=== PATIENT | male | born 1955 | race Caucasian/White ===

== ENCOUNTER 2019-05-09 14:33 | Inpatient (IN) | payer MEDICARE, OTHER ==
[2019-05-10 21:44] VITALS: BP 131/75
--- NOTE | 2019-05-11 07:08 | Psychiatric Evaluation ---
DATE OF SERVICE: PSYCHIATRIC INITIAL EVALUATION AND MENTAL STATUS EXAM PATIENT'S AGE: 63. SEX: Male. PHYSICIAN: Dr. Santizo. CHIEF COMPLAINT: Irritability and agitation. HISTORY OF PRESENT ILLNESS: The patient is a 63-year-old male who was admitted to the hospital from a [facility] facility. In the facility, the patient has been easily agitated and has been in irritable mood and striking out at staff. The patient also has been refusing to cooperate with the staff and has been refusing to take medications. The patient has long history of what seems to be schizoaffective disorder, but he has not been compliant with taking his medications and is felt to be paranoid and irritable. The patient is constantly talking and has been in irritable and angry mood. The patient also has been restless and has been agitated. He also has been suspicious and has been paranoid. During interview, the patient was not able to stop talking and was constantly talking to himself and has difficulty following directions. PAST PSYCHIATRIC HISTORY: The patient said that he has a history of multiple psychiatric hospitalizations for treatment of schizoaffective disorder. PAST MEDICAL HISTORY: The patient has COPD. FAMILY PSYCHIATRIC AND CHEMICAL DEPENDENCE HISTORY: The patient is unable to tell, but he basically denies any. SOCIAL HISTORY: The patient is single, never and has no children. The patient admits to smoking 8 cigarettes per day. He denies any alcohol or any street drug use at this time. The patient denies any legal issues and denies any history of abuse. ALLERGIES: No known allergies. MENTAL STATUS EXAMINATION: The patient appears much older than stated age. Disheveled. Irritable mood. Thought processes are circumstantial and tangential with flight of ideas and the patient is actively hallucinating and actively talking to himself. The patient denies any intention to harm himself or others. The patient is alert and oriented to time, place, person, and situation. Intact immediate, recent and remote memories. Poor insight and he does not know why he is in the hospital. Poor judgment and he was refusing to take his medications and he was striking out at staff. He seems to be of average intelligence based on his verbal ability. ASSESSMENT: PRIMARY DIAGNOSIS: Schizoaffective disorder, bipolar type, severe, with psychotic features. MEDICAL DIAGNOSES: Chronic obstructive pulmonary disease. TREATMENT PLAN: We will monitor the patient's behavior and condition closely. Also, we will continue lithium and we will start the patient on Seroquel and we will adjust the dose. Also, we will work on his irritability and his agitation. ESTIMATED LENGTH OF STAY: 5-7 days. PATIENT'S STRENGTHS AND WEAKNESSES: The patient so far seems to be calm and cooperative with his treatment. Weaknesses is his poor impulse control and his noncompliance with taking his medications. AFTER DISCHARGE PLAN: Outpatient treatment and followup will continue as an outpatient. The patient also will return to [facility]. CRITERIA FOR DISCHARGE: The patient will not be agitated or psychotic and stabilize psychotropic medications and establish outpatient treatment plans. JOB# [id number]
--- NOTE | 2019-05-11 12:49 | History and Physical ---
History of Present Illness - HPI Chief Complaint: 63 y/o male patient was brought into ER for evaluation due to Irritability and Agitation. HPI: 63 y/o male patient was admitted to [facility] for evaluation due to Irritability and Agitation. Patient has been talking to himself and hallucinating. Patient has history of Copd and Schizoaffective disorder. Patient had a Psych consultation and a workup was done. Patient was diagnosed with Schizoaffective disorder, Bipolar type, severe with Psychotic features and History of Copd. I will follow, treat and monitor patient. Patient will continue current treatment plan as ordered. Vital Signs: Last Vital Signs Temp 98.2 F 05/11/19 06:15 Pulse 71 05/11/19 06:15 Resp 19 05/11/19 06:15 BP 127/74 05/11/19 06:15 Pulse Ox 98 05/11/19 06:15 Past Medical History Cardiovascular: Report: No Pertinent Hx Pulmonary: Report: COPD [employer]: Report: No Pertinent Hx GI: Report: No Pertinent Hx Psych: Report: Schizophrenia Musculoskeletal: Report: No Pertinent Hx Rheumatologic: Report: No pertinent Hx Infectious Disease: Report: No Pertinent Hx Renal/: Report: No Pertinent Hx Endocrine: Report: No Pertinent Hx Dermatology: Report: No Pertinent Hx - Past Surgical History Past Surgical History: No pertinent Hx Family Medical History - Family Member Mother History Unknown: Yes Social History Smoke: No Alcohol: None Drugs: None Lives: Snf Domestic Violence: Negative Health Maintenance Health Maintenance: Other (Please see chart.) - Medications Home Medications: Home Medication Medication Instructions Recorded Type Alprazolam 0.5 mg PO DAILY PRN 05/10/19 History Aspirin [Lo-Dose Aspirin EC] 81 mg PO DAILY 05/10/19 History Benztropine [Cogentin*] 0.5 mg PO DAILY 05/10/19 History Carbidopa/Levodopa 25 - 100 mg PO TID 05/10/19 History [Carbidopa-Levodopa 25-100 Tab] Cholecalciferol (Vitamin D3) 2,000 units PO DAILY 05/10/19 History [Vitamin D3] Trazodone HCl 100 mg PO HS 05/10/19 History Other Medications: Please see Medication reconciliation sheet. - Allergies Allergies/Adverse Reactions: Allergies Allergy/AdvReac Type Severity Reaction Status Date / Time No Known Allergies Allergy Verified 02/04/20 21:44 Review of Systems - Review of Systems Review of Systems: Patient is agitated and irritable, needs close monitoring. Constitutional: Report: No Significant Eyes: Report: No Significant ENT: Report: No Significant Respiratory: Report: Other (History of Copd.) Cardiovascular: Report: No Significant Gastrointestinal: Report: No Significant Genitourinary: Report: No Significant Musculoskeletal: Report: No Significant Skin: Report: No Significant Neurological: Report: Confusion Physical Exam - Physical Exam HEENT: Report: Ears Nose Throat within normal limits Neck: Report: Within normal limits Cardiovascular Systems: Report: +s1/s2 noted, Regular, Rate and Rhythm Respiratory: Report: Breath Sounds are within normal limits Abdomen: Report: Non-tender to palpation Back: Report: Inspection of back is within normal limits. Extremities: Report: Non-tender to palpation. Skin: Report: Color of skin is within normal limits Neuro/Psych: Report: Disoriented to name time or place - Lab Results All Lab Results last 24 hours: Please see labs. - Assessment Assessment: Schizoaffective disorder. Bipolar type, severe with Psychotic features. History of Copd. - Plan Plan: Psych management as per Psych. Monitor vitals and labs. Supportive care. Pain management. Monitor diet and nutritional support. Continue current treatment plan as ordered.
[2019-05-12] MEDS: Vitamin D3 2,000 IU SGL PO SCH (08:07)
--- NOTE | 2019-05-12 08:20 | Progress Notes ---
DATE: SUBJECTIVE: Chart was reviewed and the patient interviewed. Also discussed the patient's condition with the staff and reviewed records and labs. The patient is still in angry and in irritable mood. The patient also is still restless and still has pacing up and down the unit in a confused state. He is also still unable to follow any directions. The patient also is in angry and in irritable mood. Otherwise, the patient is compliant with taking medications with no side effects of medications. ASSESSMENT: The patient is still in irritable mood and agitated and needs lots of redirections. TREATMENT PLAN: We will continue lithium 300 mg twice a day. We will change Seroquel to be given 50 mg twice a day and 100 mg at bedtime, especially that the patient according to staff had difficulty sleeping at night. Also, we will increase trazodone to 150 mg every day and we will continue to monitor behavior and condition closely. Also, work on behavioral and poor impulse control. JOB# [id number]
--- NOTE | 2019-05-12 13:29 | Internal Medicine Prog Note ---
Internal Medicine Subjective - Subjective Service Date: 05/12/19 Patient seen and examined:: with staff Patient is:: awake Per staff patient has:: tolerating meds Internal Medicine Objective - Physical Exam Vitals and I&O: Vital Signs Temp 97.2 F 05/12/19 06:00 Pulse 75 05/12/19 06:00 Resp 19 05/12/19 11:08 BP 128/80 05/12/19 06:00 Pulse Ox 98 05/12/19 06:00 Intake & Output 05/11/19 05/12/19 05/12/19 18:59 06:59 18:59 Intake Total 120 Balance 120 Intake: Oral 120 Other: # Voids 2 # Bowel Movements 0 Active Medications: Current Medications Acetaminophen (Tylenol) 650 mg PO Q4H PRN PRN Reason: Pain (Mild 1-3) Stop: 07/09/19 22:47 Last Admin: 05/12/19 05:47 Dose: 650 mg Aspirin (Ecotrin) 81 mg PO DAILY [facility] Stop: 07/11/19 08:59 Last Admin: 05/12/19 08:06 Dose: 81 mg Benztropine Mesylate (Cogentin) 1 mg PO BID [facility] Stop: 07/11/19 08:59 Last Admin: 05/12/19 08:06 Dose: 1 mg Carbidopa/Levodopa (Sinemet 25mg-100 Mg) 1 tab PO TID [facility] Stop: 07/10/19 20:59 Last Admin: 05/12/19 13:27 Dose: 1 tab [place] Carbonate (Eskalith) 300 mg PO BID [facility]; Protocol Stop: 07/10/19 08:59 Last Admin: 05/12/19 08:07 Dose: 300 mg Lorazepam (Ativan) 0.5 mg PO Q4HR PRN; Protocol PRN Reason: Anxiety Stop: 06/09/19 19:44 Quetiapine Fumarate (Seroquel) 100 mg PO HS [facility]; Protocol Stop: 07/11/19 20:59 Quetiapine Fumarate (Seroquel) 50 mg PO BID [facility]; Protocol Stop: 07/11/19 08:59 Last Admin: 05/12/19 08:07 Dose: 50 mg Trazodone HCl (Desyrel) 150 mg PO HS [facility] Stop: 07/11/19 20:59 Vitamin D (Vitamin D3) 2,000 iu PO DAILY [facility] Stop: 07/11/19 08:59 Last Admin: 05/12/19 08:07 Dose: 2,000 iu Zolpidem Tartrate (Ambien) 5 mg PO HS PRN PRN Reason: Insomnia Stop: 07/09/19 19:44 Last Admin: 05/12/19 00:16 Dose: 5 mg General: alert HEENT: NC/AT Neck: Supple Lungs: CTAB Cardiovascular: RRR, without murmur Abdomen: soft, non-tender, non-distended, positive bowel sound Neurological: alert - Procedures Procedures: Procedures Procedure Code Date INDIVID PSYCHOTHERAP NEC 94.39 12/24/05 OTHER GROUP THERAPY 94.44 12/30/07 RECREATIONAL THERAPY 93.81 09/26/07 Internal Medicine Assmt/Plan - Assessment Assessment: Schizoaffective disorder. Bipolar type, severe with Psychotic features. History of Copd. - Plan Plan: Psych management as per Psych. Monitor vitals and labs. Supportive care. Pain management. Monitor diet and nutritional support. Continue current treatment plan as ordered.
[2019-05-13] MEDS: Vitamin D3 2,000 IU SGL PO SCH (08:15)
--- NOTE | 2019-05-13 11:53 | Internal Medicine Prog Note ---
Internal Medicine Subjective - Subjective Service Date: 05/13/19 Patient seen and examined:: with staff Patient is:: awake, agitated, confused Patient Complaints of:: other (Mood disorders.) Per staff patient has:: tolerating meds Internal Medicine Objective - Physical Exam Vitals and I&O: Vital Signs Temp 98.4 F 05/13/19 06:19 Pulse 83 05/13/19 06:19 Resp 17 05/13/19 06:19 BP 102/82 05/13/19 06:19 Pulse Ox 100 05/13/19 06:19 Intake & Output 05/12/19 05/13/19 05/13/19 18:59 06:59 18:59 Intake Total 1200 400 Output Total 2 Balance 1200 398 Intake: Oral 1200 400 Output: Urine 2 Other: # Voids 1 # Bowel Movements 1 0 Active Medications: Current Medications Acetaminophen (Tylenol) 650 mg PO Q4H PRN PRN Reason: Pain (Mild 1-3) Stop: 07/09/19 22:47 Last Admin: 05/12/19 13:29 Dose: 650 mg Aspirin (Ecotrin) 81 mg PO DAILY [facility] Stop: 07/11/19 08:59 Last Admin: 05/13/19 08:15 Dose: 81 mg Benztropine Mesylate (Cogentin) 1 mg PO BID [facility] Stop: 07/11/19 08:59 Last Admin: 05/13/19 08:15 Dose: 1 mg Carbidopa/Levodopa (Sinemet 25mg-100 Mg) 1 tab PO TID [facility] Stop: 07/10/19 20:59 Last Admin: 05/13/19 08:15 Dose: 1 tab [place] Carbonate (Eskalith) 300 mg PO BID [facility]; Protocol Stop: 07/10/19 08:59 Last Admin: 05/13/19 08:15 Dose: 300 mg Lorazepam (Ativan) 0.5 mg PO Q4HR PRN; Protocol PRN Reason: Anxiety Stop: 06/09/19 19:44 Last Admin: 05/13/19 03:36 Dose: 0.5 mg Quetiapine Fumarate (Seroquel) 100 mg PO HS [facility]; Protocol Stop: 07/11/19 20:59 Last Admin: 05/12/19 21:04 Dose: 100 mg Quetiapine Fumarate (Seroquel) 50 mg PO BID [facility]; Protocol Stop: 07/11/19 08:59 Last Admin: 05/13/19 08:15 Dose: 50 mg Trazodone HCl (Desyrel) 150 mg PO HS [facility] Stop: 07/11/19 20:59 Last Admin: 05/12/19 21:03 Dose: 150 mg Vitamin D (Vitamin D3) 2,000 iu PO DAILY [facility] Stop: 07/11/19 08:59 Last Admin: 05/13/19 08:15 Dose: 2,000 iu Zolpidem Tartrate (Ambien) 5 mg PO HS PRN PRN Reason: Insomnia Stop: 07/09/19 19:44 Last Admin: 05/13/19 01:11 Dose: 5 mg Physical Exam: Patient is very agitated and confused, needs close monitoring. General: alert HEENT: NC/AT Neck: Supple Lungs: CTAB Cardiovascular: RRR, without murmur Abdomen: soft, non-tender, non-distended, positive bowel sound Extremities: clear Neurological: alert - Procedures Procedures: Procedures Procedure Code Date INDIVID PSYCHOTHERAP NEC 94.39 12/24/05 OTHER GROUP THERAPY 94.44 12/30/07 RECREATIONAL THERAPY 93.81 09/26/07 Internal Medicine Assmt/Plan - Assessment Assessment: Schizoaffective disorder. Bipolar type, severe with Psychotic features. History of Copd. - Plan Plan: Psych management as per Psych. Monitor vitals and labs. Supportive care. Pain management. Monitor diet and nutritional support. Continue current treatment plan as ordered. Nutritional Asmnt/Malnutr-PDOC - Dietary Evaluation Malnutrition Findings (Please click <Entered> for more info): see orders.
--- NOTE | 2019-05-13 21:45 | Progress Notes ---
DATE: 05/13/2019 PSYCHIATRIC PROGRESS NOTE SUBJECTIVE: Chart was reviewed and the patient interviewed. Also, discussed the patient's condition with the staff and reviewed records and labs. The patient is still in irritable and angry mood and is still agitated. The patient is also still pacing up and down the unit and limping. He also still seems to be actively responding to stimuli. Also, during interview, the patient is talking to himself. He also is still laughing inappropriately. Otherwise, the patient continued to comply with taking his medications and Seroquel was increased to 50 mg twice a day and 100 mg at bedtime with no side effects. Also, continued to take lithium, benztropine, and trazodone and it seemed that he is feeling slightly better than before. ASSESSMENT: The patient is still agitated and psychotic. TREATMENT PLAN: Continue to monitor behavior and condition closely. Also, continue adjusting psychotropic medications and work on behavioral modification. JOB# [id number]
[2019-05-14] MEDS: Vitamin D3 2,000 IU SGL PO SCH (09:24)
--- NOTE | 2019-05-14 19:49 | Progress Notes ---
DATE: 05/14/[address] Santizo. IDENTIFYING DATA: A 63-year-old male, brought in here for agitated, irritable, and striking out behavior towards staff. CURRENT MEDICATIONS: Reconciliation reviewed, includes benztropine 1 mg p.o. b.i.d., lithium 300 mg p.o. b.i.d., Seroquel 50 b.i.d. and 100 mg at nighttime with trazodone 150 mg. SUBJECTIVE: Today, on [id number] evaluation, denies any side effects of the medications. Denies overt sedation. Continues to make conversation. The patient easily derails and unable to communicate, has been wandering. MENTAL STATUS EXAMINATION: Disorganized, derailed thought process. ASSESSMENT AND PLAN: The patient continues to derail in conversation secondary to his disorganized thought process, unable to formulate a safe plan. We will continue with the current medication treatment plan and goals. JOB# [id number]
[2019-05-15] MEDS: Vitamin D3 2,000 IU SGL PO SCH (09:11)
--- NOTE | 2019-05-15 19:26 | Progress Notes ---
DATE: 05/15/[address] Santizo. Today on [id number] evaluation, disorganized thought process, difficult to understand. MENTAL STATUS EXAMINATION: Disorganized, thought process and speech is disorganized. ASSESSMENT AND PLAN: Due to the patient's ongoing derailing mental state as described by disorganized thought process, we will continue with primary psychiatrist's treatment plan and goals. JOB# [id number]
[2019-05-16] MEDS: Vitamin D3 2,000 IU SGL PO SCH (09:10)
--- NOTE | 2019-05-16 11:25 | Internal Medicine Prog Note ---
Internal Medicine Subjective - Subjective Service Date: 05/16/19 Patient seen and examined:: with staff, chart reviewed Patient is:: awake, ambulating, agitated, confused Patient Complaints of:: other (Mood disorders.) Per staff patient has:: no adverse event, no episodes of fall, tolerating meds Internal Medicine Objective - Physical Exam Vitals and I&O: Vital Signs Temp 98.2 F 05/15/19 20:39 Pulse 68 05/15/19 20:39 Resp 18 05/15/19 20:39 BP 115/63 05/15/19 20:39 Pulse Ox 99 05/15/19 20:39 Intake & Output 05/15/19 05/16/19 05/16/19 18:59 06:59 18:59 Intake Total 1100 240 Balance 1100 240 Intake: Oral 1100 240 Other: # Voids 2 Active Medications: Current Medications Acetaminophen (Tylenol) 650 mg PO Q4H PRN PRN Reason: Pain (Mild 1-3) Stop: 07/09/19 22:47 Last Admin: 05/12/19 13:29 Dose: 650 mg Aspirin (Ecotrin) 81 mg PO DAILY [facility] Stop: 07/11/19 08:59 Last Admin: 05/16/19 09:10 Dose: 81 mg Benztropine Mesylate (Cogentin) 1 mg PO BID [facility] Stop: 07/11/19 08:59 Last Admin: 05/16/19 09:10 Dose: 1 mg Carbidopa/Levodopa (Sinemet 25mg-100 Mg) 1 tab PO TID [facility] Stop: 07/10/19 20:59 Last Admin: 05/16/19 09:10 Dose: 1 tab [place] Carbonate (Eskalith) 300 mg PO BID [facility]; Protocol Stop: 07/10/19 08:59 Last Admin: 05/16/19 09:10 Dose: 300 mg Lorazepam (Ativan) 0.5 mg PO Q4HR PRN; Protocol PRN Reason: Anxiety Stop: 06/09/19 19:44 Last Admin: 05/15/19 05:08 Dose: 0.5 mg Quetiapine Fumarate (Seroquel) 100 mg PO HS [facility]; Protocol Stop: 07/11/19 20:59 Last Admin: 05/15/19 20:59 Dose: 100 mg Quetiapine Fumarate (Seroquel) 50 mg PO BID [facility]; Protocol Stop: 07/11/19 08:59 Last Admin: 05/16/19 09:10 Dose: 50 mg Trazodone HCl (Desyrel) 150 mg PO HS [facility] Stop: 07/11/19 20:59 Last Admin: 05/15/19 21:00 Dose: 150 mg Vitamin D (Vitamin D3) 2,000 iu PO DAILY [facility] Stop: 07/11/19 08:59 Last Admin: 05/16/19 09:10 Dose: 2,000 iu Zolpidem Tartrate (Ambien) 5 mg PO HS PRN PRN Reason: Insomnia Stop: 07/09/19 19:44 Last Admin: 05/15/19 21:00 Dose: 5 mg Physical Exam: Patient needs close monitoring, easily agitated and upset, talking to himself, walks with a limp. General: alert HEENT: NC/AT Neck: Supple Lungs: CTAB Cardiovascular: RRR, without murmur Abdomen: soft, non-tender, non-distended, positive bowel sound Extremities: clear Neurological: alert - Procedures Procedures: Procedures Procedure Code Date INDIVID PSYCHOTHERAP NEC 94.39 12/24/05 OTHER GROUP THERAPY 94.44 12/30/07 RECREATIONAL THERAPY 93.81 09/26/07 Internal Medicine Assmt/Plan - Assessment Assessment: Schizoaffective disorder. Bipolar type, severe with Psychotic features. History of Copd. - Plan Plan: Psych management as per Psych. Monitor vitals and labs. Supportive care. Pain management. Monitor diet and nutritional support. Continue current treatment plan as ordered. Nutritional Asmnt/Malnutr-PDOC - Dietary Evaluation Malnutrition Findings (Please click <Entered> for more info): see orders.
[2019-05-16] MEDS: Benztropine 1 MG TAB PO SCH (17:20)
--- NOTE | 2019-05-16 23:44 | Progress Notes ---
DATE: 05/16/2019 SUBJECTIVE: Chart was reviewed and the patient interviewed. Also discussed the patient's condition with the staff and reviewed records and labs. The patient seems to be less confused and seems to be less irritable, but he still needs lots of redirections. The patient also is compliant with taking his medications and he seems to be less agitated and less irritable. The patient also has been compliant with taking his medications with no side effects of medications. ASSESSMENT: The patient is less agitated and less irritable. TREATMENT PLAN: We will continue monitoring his medications and his condition. Also, continue to work on his irritability and his behavioral modification. JOB# [id number]
--- NOTE | 2019-05-17 06:57 | Discharge Summary ---
DATE OF DISCHARGE: 05/17/2019 AGE: 63. SEX: Male. PHYSICIAN: Dr. Santizo. PRIMARY DIAGNOSIS: Schizoaffective disorder, schizophrenic type, with psychotic features, severe. MEDICAL DIAGNOSES: Chronic obstructive pulmonary disease. REASON FOR HOSPITALIZATION: The patient was admitted to the hospital because of increased irritability and increased agitation and was refusing to take medications with severe mood swings. HOSPITAL COURSE: The patient continued to be in irritable mood. The patient also was restless and was having problems following directions. The patient was started on lithium in a dose of 300 mg twice a day and Seroquel was added in a dose of 50 mg twice a day and 100 mg at bedtime. Gradually, the patient's affect was brighter. The patient was less irritable and less agitated. The patient also is easier to follow directions. The patient was discharged from the hospital. Physical exam of the patient came as mentioned under axis III of final diagnosis. AFTER DISCHARGE PLANS: The patient discharged from the hospital and went to [facility] with plans for follow him up there. EXPECTED OUTCOME AFTER DISCHARGE: Fair if the patient continues to take his psychotropic medications and follow up with discharge plans. ADDENDUM: [place] blood level that was done on 05/11/2019 came back to be 1.83 and another lithium blood level is pending. We will monitor the lithium blood level in [facility]. JOB# [id number]
[2019-05-17] MEDS: Vitamin D3 2,000 IU SGL PO SCH (08:55)
[2019-05-17] MEDS: Benztropine 1 MG TAB PO SCH ×2 (08:55→16:02)
--- NOTE | 2019-05-17 12:50 | Internal Medicine Prog Note ---
Internal Medicine Subjective - Subjective Service Date: 05/17/19 Patient seen and examined:: with staff, chart reviewed Patient is:: awake, ambulating, agitated, confused Patient Complaints of:: other (Mood disorders.) Per staff patient has:: no adverse event, no episodes of fall, tolerating meds Internal Medicine Objective - Physical Exam Vitals and I&O: Vital Signs Temp 98.4 F 05/17/19 06:29 Pulse 69 05/17/19 06:29 Resp 18 05/17/19 07:35 BP 105/67 05/17/19 06:29 Pulse Ox 100 05/17/19 06:29 Intake & Output 05/16/19 05/17/19 05/17/19 18:59 06:59 18:59 Intake Total 1200 440 Balance 1200 440 Intake: Oral 1200 440 Other: # Voids 5 3 # Bowel Movements 1 0 Active Medications: Current Medications Acetaminophen (Tylenol) 650 mg PO Q4H PRN PRN Reason: Pain (Mild 1-3) Stop: 07/09/19 22:47 Last Admin: 05/12/19 13:29 Dose: 650 mg Aspirin (Ecotrin) 81 mg PO DAILY [facility] Stop: 07/11/19 08:59 Last Admin: 05/17/19 08:55 Dose: 81 mg Benztropine Mesylate (Cogentin) 1 mg PO BID [facility] Stop: 07/11/19 16:59 Last Admin: 05/17/19 08:55 Dose: 1 mg Carbidopa/Levodopa (Sinemet 25mg-100 Mg) 1 tab PO TID [facility] Stop: 07/10/19 20:59 Last Admin: 05/17/19 08:55 Dose: 1 tab Bazine Carbonate (Eskalith) 300 mg PO BID [facility]; Protocol Stop: 07/10/19 08:59 Last Admin: 05/17/19 08:55 Dose: 300 mg Lorazepam (Ativan) 0.5 mg PO Q4HR PRN; Protocol PRN Reason: Anxiety Stop: 06/09/19 19:44 Last Admin: 05/15/19 05:08 Dose: 0.5 mg Quetiapine Fumarate (Seroquel) 100 mg PO HS [facility]; Protocol Stop: 07/11/19 20:59 Last Admin: 05/16/19 21:02 Dose: 100 mg Quetiapine Fumarate (Seroquel) 50 mg PO BID [facility]; Protocol Stop: 07/11/19 08:59 Last Admin: 05/17/19 08:55 Dose: 50 mg Trazodone HCl (Desyrel) 150 mg PO HS [facility] Stop: 07/11/19 20:59 Last Admin: 05/16/19 21:02 Dose: 150 mg Vitamin D (Vitamin D3) 2,000 iu PO DAILY [facility] Stop: 07/11/19 08:59 Last Admin: 05/17/19 08:55 Dose: 2,000 iu Zolpidem Tartrate (Ambien) 5 mg PO HS PRN PRN Reason: Insomnia Stop: 07/09/19 19:44 Last Admin: 05/16/19 21:02 Dose: 5 mg Physical Exam: Patient is being discharged and will closely monitored. General: alert HEENT: NC/AT Neck: Supple Lungs: CTAB Cardiovascular: RRR, without murmur Abdomen: soft, non-tender, non-distended, positive bowel sound Extremities: clear Neurological: alert - Procedures Procedures: Procedures Procedure Code Date INDIVID PSYCHOTHERAP NEC 94.39 12/24/05 OTHER GROUP THERAPY 94.44 12/30/07 RECREATIONAL THERAPY 93.81 09/26/07 Internal Medicine Assmt/Plan - Assessment Assessment: Schizoaffective disorder. Bipolar type, severe with Psychotic features. History of Copd. - Plan Plan: Psych management as per Psych. Monitor vitals and labs. Supportive care. Pain management. Monitor diet and nutritional support. Continue current treatment plan as ordered. Nutritional Asmnt/Malnutr-PDOC - Dietary Evaluation Malnutrition Findings (Please click <Entered> for more info): Nutritional Asmnt/Malnutrition Start: 05/16/19 15: 15 Text: Status: Complete Freq: Protocol: Document 05/16/19 15:16 SANDRA (Rec: 05/16/19 15:18 [email or web address] [email or web address]) Nutritional Asmnt/Malnutrition Patient General Information Nutritional Screening Low Risk Diagnosis Psychosis Pertinent Medical Hx/Surgical Hx COPD, Schizoaffective Disorder , Bipolar Type Subjective Information Pt is a 63-year-old male admitted on 2/ d/t irritability and agitation. Pt is eating an estimated 100% of meals since admit date (x5 days) Per Meal/Nutrition Activity Record. Dietary is currently providing an estimated 2300 kcals and 100 gm Pro to meet 100+% kcal and 100+% Pro needs. Visited pt in room today, he took a snack when offered. Stated the food has been fine. Pt was walking around room and halls at time of visit. Anthropometrics HT: 511 WT: 150 LB (68.18 kg) BMI: 20.92 (Normal) GI/ Skin Integrity GI: WNL, Soft, Flat, Non- tender BM: 05/14 x1 I/O: 1340/Not Noted Skin: WNL, Intact Jose: 22 Diet Order: Regular Estimated Energy Needs: ( Geriatric, CBW) 5157-1123 kcals (25-30 kcals/ kg) 70-80g Pro (1.0-1.2 g/kg) 2543-6653 ml (25-30 ml/kg) Current Diet Order/ Nutrition Support Regular Pertinent Medications Vitamin D3 Pertinent Labs 05/11: T Protein 5.7, AST 86, Glucose 100, A1c 5.4% Nutritional Hx/Data Height 1.8 m Height (Calculated Centimeters) 180.3 Current Weight (lbs) 68.039 kg Weight (Calculated Kilograms) 68.0 Weight (Calculated Grams) [address] Body Weight 172 LB (78.18 kg) % [address] Body Weight 87 Body Mass Index (BMI) 20.9 Weight Status Approriate GI Symptoms GI Symptoms None Last BM 05/14 x1 Skin Integrity/Comment: Skin: WNL, Intact Jose: 22 Current %PO Good (75-100%) Estimated Nutritional Goals BEE in Kcals: Using Current wt Calories/Kcals/Kg 25-30 Kcals Calculated 5873-6261 Protein: Using Current wt Protein g/k.0-1.2 Protein Calculated 70-80 Fluid: ml 1633-6286 ml (25-30 ml/kg) Nutritional Problem No current Nutrition Prob Problem No nutrition diagnosis at this time. Etiology N/A Signs/Symptoms: N/A Malnutrition Related to Morbid Obesity Malnutrition related to morbid obesity No Intervention/Recommendation Comments Continue Regular diet as tolerated. Expected Outcomes/Goals Expected Outcomes/Goals 1.PO intake to continue to meet >75% of estimated nutritional needs. 2.Monitor PO intake, wt, nutrition related labs, and skin integrity. 3.F/U as low risk in 7-10 days , 05/23-05/26
== END 2019-05-17 16:35 | DRG 885 ==
LOC: GERO 05-10 19:45
PROVIDERS: ADMIT Psychiatry & Neurology Psychiatry; ATTEND Psychiatry & Neurology Psychiatry
DX: F25.0 Schizoaffective disorder, bipolar type (principal); J44.9 Chronic obstructive pulmonary disease, unspecified; F17.210 Nicotine dependence, cigarettes, uncomplicated
CPT/HCPCS: 83036-90; 90899; G0410; Z7610